=== PATIENT | male | born 1980 | race American Indian/Alaskan Native ===

== ENCOUNTER 2024-04-19 10:56 | Day surgery (SDC) | payer OTHER ==
[~2024-04-19] VITALS: Ht 185.4 cm; Wt 94.1 kg
[~2024-04-19 10:56] MED LIST: ACET1TAB55 PO; BUPR-71 PO; BUSP10TA PO; CELE0.09 PO; GABA-284 PO; LIDOCAINE 2% 100MG/5ML SDV (FOR ANES.) As Ordered ONE; PANT40TA29 PO; SILD50TA2 PO; WELLTAB38 PO; fentaNYL 100 MCG/2 ML INJECTION As Ordered ONE; propofoL 200 MG/20 ML VIAL As Ordered ONE
[2024-04-19] MEDS ORDERED: LR 1,000 ML IV SCH ×2 (11:00→14:35)
[2024-04-19] MEDS: ceFAZolin SOD 2 GM in IV 1 EA IV ONE (13:00)
[2024-04-19] MEDS ORDERED: ONDANSETRON 4MG 2ML VIAL As Ordered ONE (13:14)
[2024-04-19] MEDS: TRANEXAMIC ACID 100 MG/ML 10ML VIAL As Ordered ONE (13:15)
[2024-04-19] MEDS ORDERED: ACETAMINOPHEN 1000MG 100ML IV BAG As Ordered ONE (13:15)
[2024-04-19] MEDS ORDERED: ROCURONIUM BROMIDE 50MG/5ML VIAL As Ordered ONE (13:16)
[2024-04-19] MEDS ORDERED: SUGAMMADEX SODIUM 500 MG/5 ML VIAL (BRIDION) As Ordered ONE (13:17)
[2024-04-19] MEDS ORDERED: SEVOFLURANE INHAL SOLN 250 ML BTL As Ordered ONE (13:19)
[2024-04-19] MEDS: EPINEPHrine INJ 1 MG/ML 1ML AMP As Ordered ONE (13:45)
[2024-04-19] MEDS ORDERED: ONDANSETRON 4MG 2ML VIAL IV PRN (14:35)
[2024-04-19] MEDS ORDERED: fentaNYL 100 MCG/2 ML INJECTION IV PRN ×2 (14:35→15:05)
[2024-04-19] MEDS ORDERED: HYDROmorphone HCL 2MG/ML 1ML VIAL As Ordered ONE (14:47)
[2024-04-19] MEDS: fentaNYL 100 MCG/2 ML INJECTION IV PRN (15:03)
[2024-04-19] MEDS ORDERED: HYDROMORPHONE HCL 0.5 MG/ 0.5 ML SYRINGE IV PRN (15:05)
[2024-04-19] MEDS: oxyCODONE 5MG TAB PO PRN (15:31)
[2024-04-19] MEDS: HYDROMORPHONE HCL 0.5 MG/ 0.5 ML SYRINGE IV PRN (15:51)
[2024-04-19 16:20] VITALS: BP 121/76; TEMP 97.1; O2SAT 95
== END 2024-04-19 16:44 | disposition home or self-care (01) ==
LOC: M SDC 10:56
PROVIDERS: ATTEND Orthopaedic Surgery
DX: M25.561 Pain in right knee (principal); M23.201 Derangement of unspecified lateral meniscus due to old tear or injury, left knee; K21.9 Gastro-esophageal reflux disease without esophagitis; F41.9 Anxiety disorder, unspecified; F32.A Depression, unspecified; F43.10 Post-traumatic stress disorder, unspecified; G47.33 Obstructive sleep apnea (adult) (pediatric); Z79.899 Other long term (current) drug therapy; Z87.891 Personal history of nicotine dependence
CPT/HCPCS: 29882; C1713; C9290; J0131; J0171; J0665; J0690; J1100; J1171; J2405; J3010